=== PATIENT | male | born 1980 | race American Indian/Alaskan Native ===

== ENCOUNTER 2017-08-07 12:18 | Emergency (ER) | payer OTHER ==
[2017-08-07 12:25] VITALS: BP 183/108
--- NOTE | 2017-08-07 12:54 | Emergency Department Report ---
ED Lower Extremity HPI - General Chief Complaint: Extremity Injury, Lower Stated Complaint: LEFT KNEE SWOLLEN Time Seen by Provider: 08/07/17 12:54 Source: patient, family Mode of arrival: Ambulatory Limitations: No Limitations - History of Present Illness MD Complaint: other (left knee pain and swelling without any trauma with history of arthritis. Similar incident in the past) Onset/Timin -: days(s) Injury: Knee: Left (pain and swelling) Type of Injury: unknown Place: home Severity: severe Severity scale (0 -10): 8 Improves With: immobilization Worsens With: weight bearing, movement Context: other (osteoarthritis with similar incident in the past) Other Symptoms: other (no other symptoms) Associated Symptoms: swelling, ambulatory. denies: snap/pop sensation, numbness , tingling Treatments Prior to Arrival: bandage - Related Data Previous Rx's Medication Instructions Recorded Last Taken Type Acetaminophen/Codeine [Tylenol 1 tab PO Q6H PRN #12 tab 08/07/17 Unknown Rx /Codeine # 3 tab] Ibuprofen [Motrin] 800 mg PO Q8HR PRN #25 tablet 08/07/17 Unknown Rx Allergies Allergy/AdvReac Type Severity Reaction Status Date / Time No Known Allergies Allergy Unverified 08/07/17 12:25 ED Review of Systems ROS: Stated complaint: LEFT KNEE SWOLLEN Other details as noted in HPI Constitutional: denies: chills, fever Eyes: denies: eye pain, eye discharge, vision change Respiratory: denies: cough, orthopnea, shortness of breath, SOB with exertion, SOB at rest, wheezing Cardiovascular: denies: chest pain, palpitations Gastrointestinal: denies: nausea, vomiting Musculoskeletal: joint swelling, arthralgia. denies: back pain, myalgia Skin: denies: rash, lesions Neurological: denies: headache, weakness, numbness, paresthesias, confusion, abnormal gait, vertigo ED Past Medical Hx - Past Medical History Previous Medical History?: Yes Hx Hypertension: Yes Additional medical history: chronic left knee pain,elevated cholesterol - Surgical History Past Surgical History?: No - Family History Family history: hypertension - Social History Smoking Status: Current Every Day Smoker Substance Use Type: Alcohol - Medications Home Medications: Home Medications Medication Instructions Recorded Confirmed Last Taken Type Acetaminophen/Codeine [Tylenol 1 tab PO Q6H PRN #12 tab 08/07/17 Unknown Rx /Codeine # 3 tab] Ibuprofen [Motrin] 800 mg PO Q8HR PRN #25 tablet 08/07/17 Unknown Rx ED Physical Exam - General Limitations: No Limitations General appearance: alert, in no apparent distress - Head Head exam: Present: atraumatic, normocephalic, normal inspection - Eye Eye exam: Present: normal appearance, PERRL, EOMI Pupils: Present: normal accommodation - ENT ENT exam: Present: normal exam, normal orophraynx, mucous membranes moist - Neck Neck exam: Present: normal inspection, full ROM. Absent: tenderness, lymphadenopathy - Respiratory Respiratory exam: Present: normal lung sounds bilaterally. Absent: respiratory distress, chest wall tenderness - Cardiovascular Cardiovascular Exam: Present: regular rate, normal rhythm, normal heart sounds. Absent: systolic murmur, diastolic murmur - GI/Abdominal GI/Abdominal exam: Present: soft, normal bowel sounds. Absent: distended, tenderness, guarding, rebound, rigid - Extremities Exam Extremities exam: Present: normal inspection, full ROM (full range of motion to both knees but pain with flexion and extension of left knee.), tenderness ( tender to palpate to the left anterior knee), normal capillary refill, joint swelling (left anterior knee), other (+2 pulses. No CCE to all extremities except patient with mild swelling to left knee. Tenderness probably to left knee. No neurovascular compromise, +5 strength in all extremities). Absent: pedal edema, calf tenderness - Expanded Lower Extremity Exam Left Hip exam: Present: normal inspection, full ROM, pelvic stability. Absent: tenderness, swelling, abrasion, laceration, ecchymosis, deformity, crepidus, dislocation, erythema, external rotation, internal rotation, shortening Upper Leg exam: Present: normal inspection, full ROM. Absent: tenderness, swelling, laceration, ecchymosis, deformity, crepidus, dislocation, erythema Knee exam: Present: normal inspection, full ROM (full range of motion to left knee but pain with flexion and extension), swelling (tenderness to palpate to left anterior knee), full knee extension. Absent: abrasion, laceration, ecchymosis, deformity, crepidus, dislocation, erythema, effusion, pain w/ pronation/supination, posterior draw sign, pain/laxity with valgus, pain/laxity with varus Lower Leg exam: Present: normal inspection, full ROM. Absent: tenderness, swelling, abrasion, laceration, ecchymosis, deformity, crepidus, dislocation, erythema, palpable cord, Marlen's sign Ankle exam: Present: normal inspection, full ROM. Absent: tenderness, swelling , abrasion, laceration, ecchymosis, deformity, crepidus, dislocation, erythema Foot/Toe exam: Present: normal inspection, full ROM. Absent: tenderness, swelling, abrasion, laceration, ecchymosis, deformity, crepidus, dislocation, erythema, amputation, puncture wound, foreign body, calcaneal tenderness, tenderness at base of 5th metatarsal, nail avulsion, subungual hematoma Neuro vascular tendon exam: Present: no vascular compromise. Absent: pulse deficit, abnormal cap refill, motor deficit, sensory deficit, tendon deficit, extremity cold to touch, pallor, abnormal 2-point discrimination, decreased fine /light touch, foot drop, peroneal nerve deficit, significant pain with passive ROM of distal joint Gait: Positive: observed and limited by pain - Back Exam Back exam: Present: normal inspection, full ROM, other (ambulates it done any difficulties). Absent: tenderness, CVA tenderness (R), CVA tenderness (L), muscle spasm, paraspinal tenderness, vertebral tenderness, rash noted - Neurological Exam Neurological exam: Present: alert, oriented X3, normal gait, reflexes normal. Absent: motor sensory deficit - Psychiatric Psychiatric exam: Present: normal affect, normal mood - Skin Skin exam: Present: warm, dry, intact, normal color. Absent: rash ED Course Vital Signs 08/07/17 08/07/17 12:22 14:27 Temperature 98.6 F Pulse Rate 116 H 98 H Respiratory 18 Rate Blood Pressure 183/108 O2 Sat by Pulse 98 Oximetry - Reevaluation(s) Reevaluation #1: 08/07/17 14:28 Patient given Motrin 800 mg by mouth and [place] 5/325 2 tablets by mouth in emergency room and he forcibly for pain. Patient has his own knee brace that he brought to the emergency room which he placed back on to his left knee after assessment. ED Lower Extremity MDM - Radiology Data Radiology results: report reviewed 3 views of left knee done and dictated by radiologist report reviewed by myself. Please see report results below. Patient: HUYEN MARTINEZ MR#: [id number] : 1980 Acct:[id number] Age/Sex: 36 / M ADM Date: 08/07/17 Loc: ED Attending Dr: Ordering Physician: ANNA MORENO Date of Service: 08/07/17 Procedure(s): XR knee 3V LT Accession Number(s): [id number] cc: ANNA MORENO Fluoro Time In Minutes: LEFT KNEE RADIOGRAPHS INDICATION: Left knee pain and swelling without trauma. COMPARISON: None similar. FINDINGS: AP, lateral and oblique left knee radiographs demonstrate intact bony articulation. Patellar enthesophytosis anterosuperiorly. Approximately 1.7 cm anterior tibial tuberosity ossification at the patellar tendon insertion also noted on the lateral view. No evidence of suprapatellar effusion, though slight diffuse soft tissue swelling at the knee anteriorly not entirely excluded. CONCLUSION: No acute left knee bony abnormality with few other findings, as above. Please correlate. Thank you for the opportunity to participate in this patient's care. Transcribed By: RS Dictated By: MABEL ARAGON MD Electronically Authenticated By: MABEL ARAGON MD Signed Date/Time: 08/07/171335 DD/ 32 TD/TT: 08/07/171335 - Medical Decision Making ED course: This is a 36-year-old male with chronic knee pain and occasional swelling that reports that he has arthritis and is been having knee pain and swelling over the last couple days it has been increasing. He has his own knee brace. Patient is here to be evaluated because he says the pain is worse than usual and he did not take any medication prior to coming to the emergency room. Patient does have access to medical care but he has not gone to orthopedic doctor in the past I saw and examined patient and she was found to have left knee pain and swelling without any effusion .he has full range of motion to left knee but pain with extension and flexion. X-ray 3 view of left knee dictated by radiologist and reviewed by myself and patient found to have no acute findings except that he has some chronic bony abnormality, degeneration and he does have some soft tissue swelling without any effusion. Diagnosis explained to patient and he was understanding. Pain is controlled with medications and he also notes that he has call orthopedic doctor tomorrow to schedule an appointment for chronic knee pain evaluation 1: Left knee pain-x-ray of left knee reveals no effusion and no acute findings but chronic changes and soft tissue swelling. Patient given Motrin 800 mg by mouth and [place] 5/325 2 tablets by mouth in emergency room which relieved this pain. 2: Left knee swelling-patient has his own knee brace so that was placed back on his left knee Education given medication, diagnosis, treatment plan, need to follow up with orthopedic doctor for chronic knee pain with occasional swelling. He voice understanding. Patient discharged home with family in stable condition with prescription for Motrin and Tylenol No. 3. His vital signs are stable and afebrile and he is nontoxic. Discussed with him to follow up with orthopedic doctor in 2 days. I also explained to him if his situation worsens to return to the emergency room and that he needs to wear his knee brace as much as possible for immobilization and he voice understanding. - Differential Diagnosis knee fracture, knee effusion, septic knee, osteoarthritis, Critical care attestation.: If time is entered above; I have spent that time in minutes in the direct care of this critically ill patient, excluding procedure time. ED Disposition Clinical Impression: Swollen L knee Knee pain, left Qualifiers: Chronicity: unspecified Qualified Code(s): M25.562 - Pain in left knee Disposition: DC-01 TO HOME OR SELFCARE Is pt being admited?: No Does the pt Need Aspirin: No Condition: Stable Instructions: Arthralgia (ED), Knee Pain (ED), Knee Exercises (GEN) Additional Instructions: Follow-up with orthopedic doctor as recommended Wear knee brace as instructed Take Motrin for mild to moderate pain and make sure he take this medication with food as it can cause irritation to stomach lining. Take Tylenol No. 3 for severe pain but please do not drive or operate heavy machinery as his medication causes drowsiness If your pain increases in swelling increases return to the emergency room Prescriptions: Acetaminophen/Codeine [Tylenol /Codeine # 3 tab] 1 tab PO Q6H PRN #12 tab PRN Reason: severe pain to left knee Ibuprofen [Motrin] 800 mg PO Q8HR PRN #25 tablet PRN Reason: mild to moderate pain Referrals: RONAK PFEIFFER MD [Staff Physician] - 2-3 Days [facility] [Outside] - 2-3 Days PRIMARY CARE, [Primary Care Provider] - 2-3 Days Forms: Work/School Release Form(ED)
[2017-08-07] MEDS ORDERED: MOTRIN PO ONE (13:12)
[2017-08-07] MEDS ORDERED: PERCOCET 5/325 PO ONE (13:12)
--- NOTE | 2017-08-07 13:44 | XRay Report ---
LEFT KNEE RADIOGRAPHS INDICATION: Left knee pain and swelling without trauma. COMPARISON: None similar. FINDINGS: AP, lateral and oblique left knee radiographs demonstrate intact bony articulation. Patellar enthesophytosis anterosuperiorly. Approximately 1.7 cm anterior tibial tuberosity ossification at the patellar tendon insertion also noted on the lateral view. No evidence of suprapatellar effusion, though slight diffuse soft tissue swelling at the knee anteriorly not entirely excluded. CONCLUSION: No acute left knee bony abnormality with few other findings, as above. Please correlate. Thank you for the opportunity to participate in this patient's care.
== END 2017-08-07 14:54 | disposition home or self-care (01) ==
LOC: ED 12:18
DX: M25.562 Pain in left knee (principal); G89.29 Other chronic pain; R22.42 Localized swelling, mass and lump, left lower limb; F17.200 Nicotine dependence, unspecified, uncomplicated; F45.42 Pain disorder with related psychological factors

== ENCOUNTER 2018-03-12 12:46 | Emergency (ER) | payer OTHER ==
[2018-03-12] MEDS ORDERED: IBUPROFEN PO ONE (13:37)
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
[2018-03-12] MEDS ORDERED: CATAPRES PO ONE (13:48)
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
[2018-03-12 15:01] VITALS: BP 132/96
== END 2018-03-12 15:25 | disposition home or self-care (01) ==
LOC: ED 12:46
DX: S00.03XA Contusion of scalp, initial encounter (principal); I10 Essential (primary) hypertension; M25.562 Pain in left knee; G89.29 Other chronic pain; E78.00 Pure hypercholesterolemia, unspecified; F17.200 Nicotine dependence, unspecified, uncomplicated; V89.2XXA Person injured in unspecified motor-vehicle accident, traffic, initial encounter; Y93.89 Activity, other specified; Y92.488 Other paved roadways as the place of occurrence of the external cause; Y99.8 Other external cause status
CPT/HCPCS: 70450; 99283

== ENCOUNTER 2018-04-11 13:39 | Emergency (ER) | payer SELFPAY ==
[2018-04-11 13:53] VITALS: BP 197/124
--- NOTE | 2018-04-11 14:16 | Emergency Department Report ---
Blank Doc - Documentation Documentation: This is a 37 y.o. male that presents with N/V/D since yesterday. He reports v omiting and diarrhea every 3 hours. States he is unable to keep anything down today. Ordered: Labs Fast track for further evaluation.
[2018-04-11 14:53] LABS: Basophils # (Auto) 0.1 K/mm3 (0.0-0.1); Basophils % (Auto) 1.2 % (0.0-1.8); Eosinophils # (Auto) 0.1 K/mm3 (0.0-0.4); Hemoglobin 15.1 gm/dl (11.8-15.2); Lymphocytes # (Auto) 2.4 K/mm3 (1.2-5.4); Mean Corpuscular HGB Conc 34 % (32-34); Mean Corpuscular Volume 94 fl (84-94); Monocytes # (Auto) 0.7 K/mm3 (0.0-0.8); Monocytes % (Auto) 8.6 % (0.0-7.3); Platelet Count 331 K/mm3 (140-440); Red Blood Count 4.68 M/mm3 (3.65-5.03); Red Cell Distribution Width 14.7 % (13.2-15.2)
[2018-04-11 15:07] LABS: Alanine Aminotransferase 25 units/L (7-56); Albumin 4.9 g/dL (3.9-5); BUN/Creatinine Ratio 15; Blood Urea Nitrogen 12 mg/dL (9-20); Calcium 9.9 mg/dL (8.4-10.2); Hemolysis Index 13
--- NOTE | 2018-04-11 18:48 | Emergency Department Report ---
ED N/V/D HPI - General Chief complaint: Nausea/Vomiting/Diarrhea Stated complaint: N/V Time Seen by Provider: 04/11/18 14:12 Source: patient Mode of arrival: Ambulatory Limitations: No Limitations - History of Present Illness Initial comments: 37-year-old male presents to emergency department complaining of nausea, vomiting, diarrhea after eating out yesterday. Symptoms have been slowly improving since the onset about 12 hours ago, has occasional aches but denies any hemoptysis, hematemesis, hematochezia. No fever, chills, sweats, no chest pain, palpitations, no coryza, no presyncope, no neck pain MD complaint: nausea, vomiting, diarrhea -: Gradual Description of Vomiting: other Description of Diarrhea: other Associated Abdominal Pain: No Radiation: none Severity: mild Consistency: constant, intermittent Worsens with: none Associated Symptoms: nausea/vomiting. denies: myalgias, chest pain, cough, fever/chills, headaches, loss of appetite, shortness of breath, syncope, weakness - Related Data Previous Rx's Medication Instructions Recorded Last Taken Type Acetaminophen/Codeine [Tylenol 1 tab PO Q6H PRN #12 tab 08/07/17 Unknown Rx /Codeine # 3 tab] Ibuprofen [Motrin] 800 mg PO Q8HR PRN #25 tablet 08/07/17 Unknown Rx Cyclobenzaprine [Flexeril] 10 mg PO QHS PRN #10 tablet 03/12/18 Unknown Rx Ibuprofen [Motrin] 600 mg PO Q8H PRN #20 tablet 03/12/18 Unknown Rx amLODIPine [Norvasc] 10 mg PO DAILY #30 tab 03/12/18 Unknown Rx Hyoscyamine Subl [Levsin Sl 0.125 0.125 mg SL Q6HR PRN #20 tab 04/11/18 Unknown Rx TAB] Ondansetron [Zofran ODT TAB] 8 mg PO Q8HR #20 tab.rapdis 04/11/18 Unknown Rx Allergies Allergy/AdvReac Type Severity Reaction Status Date / Time No Known Allergies Allergy Verified 04/11/18 13:44 ED Review of Systems ROS: Stated complaint: N/V Other details as noted in HPI Constitutional: denies: chills, fever Eyes: denies: eye pain, eye discharge, vision change ENT: denies: ear pain, throat pain Respiratory: denies: cough, shortness of breath, wheezing Cardiovascular: denies: chest pain, palpitations Endocrine: no symptoms reported Gastrointestinal: nausea, vomiting, diarrhea. denies: abdominal pain Genitourinary: denies: urgency, dysuria Musculoskeletal: denies: back pain, joint swelling, arthralgia Skin: denies: rash, lesions Neurological: denies: headache, weakness, paresthesias Psychiatric: denies: anxiety, depression Hematological/Lymphatic: denies: easy bleeding, easy bruising ED Past Medical Hx - Past Medical History Hx Hypertension: Yes Additional medical history: chronic left knee pain,elevated cholesterol - Surgical History Past Surgical History?: No - Social History Smoking Status: Current Every Day Smoker Substance Use Type: Alcohol - Medications Home Medications: Home Medications Medication Instructions Recorded Confirmed Last Taken Type Acetaminophen/Codeine [Tylenol 1 tab PO Q6H PRN #12 tab 08/07/17 Unknown Rx /Codeine # 3 tab] Ibuprofen [Motrin] 800 mg PO Q8HR PRN #25 tablet 08/07/17 Unknown Rx Cyclobenzaprine [Flexeril] 10 mg PO QHS PRN #10 tablet 03/12/18 Unknown Rx Ibuprofen [Motrin] 600 mg PO Q8H PRN #20 tablet 03/12/18 Unknown Rx amLODIPine [Norvasc] 10 mg PO DAILY #30 tab 03/12/18 Unknown Rx Hyoscyamine Subl [Levsin Sl 0.125 0.125 mg SL Q6HR PRN #20 tab 04/11/18 Unknown Rx TAB] Ondansetron [Zofran ODT TAB] 8 mg PO Q8HR #20 tab.rapdis 04/11/18 Unknown Rx ED Physical Exam - General Limitations: No Limitations General appearance: alert, in no apparent distress - Head Head exam: Present: atraumatic, normocephalic - Eye Eye exam: Present: normal appearance, PERRL, EOMI. Absent: scleral icterus, conjunctival injection, periorbital swelling - ENT ENT exam: Present: normal orophraynx, mucous membranes moist, TM's normal bilaterally - Neck Neck exam: Present: normal inspection, full ROM. Absent: tenderness, lymphad enopathy - Respiratory Respiratory exam: Present: normal lung sounds bilaterally. Absent: respiratory distress, wheezes, rales, rhonchi, chest wall tenderness, accessory muscle use, decreased breath sounds - Cardiovascular Cardiovascular Exam: Present: regular rate, normal rhythm. Absent: systolic murmur, diastolic murmur, rubs, gallop - GI/Abdominal GI/Abdominal exam: Present: soft, normal bowel sounds. Absent: tenderness, guarding, rebound, organomegaly, mass, pulsatile mass - Rectal Rectal exam: Present: deferred - Extremities Exam Extremities exam: Present: normal inspection. Absent: full ROM - Back Exam Back exam: Present: normal inspection - Neurological Exam Neurological exam: Present: alert, oriented X3 - Psychiatric Psychiatric exam: Present: normal affect, normal mood - Skin Skin exam: Present: warm, dry, intact, normal color. Absent: rash ED Course Vital Signs 04/11/18 13:51 Temperature 98.3 F Pulse Rate 125 H Respiratory 18 Rate Blood Pressure 197/124 [Right] O2 Sat by Pulse 98 Oximetry ED Medical Decision Making - Lab Data Result diagrams: 04/11/18 14:24 04/11/18 14:24 Critical care attestation.: If time is entered above; I have spent that time in minutes in the direct care of this critically ill patient, excluding procedure time. ED Disposition Clinical Impression: Gastroenteritis Disposition: DC-01 TO HOME OR SELFCARE Is pt being admited?: No Does the pt Need Aspirin: No Condition: Stable Instructions: Acute Nausea and Vomiting (ED), Gastroenteritis (ED) Prescriptions: Hyoscyamine Subl [Levsin Sl 0.125 TAB] 0.125 mg SL Q6HR PRN #20 tab PRN Reason: abdomninal pain and cramp Ondansetron [Zofran ODT TAB] 8 mg PO Q8HR #20 tab.rapdis Referrals: MOHAMUD PRO MD [Primary Care Provider] - 3-5 Days [facility] [Provider Group] - 3-5 Days
== END 2018-04-11 19:00 | disposition home or self-care (01) ==
LOC: ED 13:39
DX: K52.9 Noninfective gastroenteritis and colitis, unspecified (principal); I10 Essential (primary) hypertension; M25.562 Pain in left knee; G89.29 Other chronic pain; E78.00 Pure hypercholesterolemia, unspecified; F17.200 Nicotine dependence, unspecified, uncomplicated
CPT/HCPCS: 36415; 80053; 85025; 99283

== ENCOUNTER 2018-05-15 12:49 | Emergency (ER) | payer OTHER ==
[2018-05-15 13:24] VITALS: BP 161/103
--- NOTE | 2018-05-15 13:27 | Emergency Department Report ---
Blank Doc - Documentation Documentation: this is a 37-year-old male that presents with left hand pain and swelling., De nies any hx of trauma. This initial assessment/diagnostic orders/clinical plan/treatment(s) is/are subject to change based on patient's health status, clinical progression and re- assessment by fellow clinical providers in the ED. Further treatment and workup at subsequent clinical providers discretion. Patient/guardians urged not to elope from the ED as their condition may be serious if not clinically assessed and managed. Initial orders include: 1- Patient sent to [facility] for further evaluation and treatment 2- xrays
--- NOTE | 2018-05-15 13:51 | XRay Report ---
LEFT HAND, 3 views: History: Left hand pain. The bony architecture is intact. Bony alignment is normal. The joint spaces appear preserved. There is mild soft tissue swelling on the dorsum of the hand IMPRESSION: Mild soft tissue swelling. No acute osseous findings or joint pathology is detected.
--- NOTE | 2018-05-15 14:00 | Emergency Department Report ---
Upper Extremity - HPI Chief Complaint: Extremity Problem,Nontraumatic Stated Complaint: LFT HAND SWOLLEN/PAIN Time Seen by Provider: 05/15/18 13:25 Upper Extremity: Left Hand Occurred When: 2 Days Mechanism: Unsure Severity: moderate Symptoms: Yes Pain with Movement, Yes Swelling, No Deformity, No Limited Range of Movement, No Numbness, No Weakness, No Bruising/Ecchymosis, No Laceration or Abrasion Other History: Patient is a pleasant 37-year-old -Indian male who comes to the ER complaining of left hand pain. He knows of no trauma. 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 He also has a scalp which is consistent with an insect bite on the dorsal surface of the hand. Patient has no systemic signs or symptoms. He is afebrile. Past medical history denies. Medications denies. Patient states he has been taking daci-esg-ctibths Motrin and Tylenol and that has not helped. ED Review of Systems ROS: Stated complaint: LFT HAND SWOLLEN/PAIN Other details as noted in HPI Comment: All other systems reviewed and negative Constitutional: no symptoms reported Eyes: denies: eye pain ENT: denies: ear pain Respiratory: denies: cough Cardiovascular: denies: dyspnea on exertion Gastrointestinal: denies: nausea Genitourinary: denies: urgency Musculoskeletal: as per HPI Skin: denies: rash Neurological: denies: headache Psychiatric: denies: depression Hematological/Lymphatic: denies: easy bleeding ED Past Medical Hx - Past Medical History Previous Medical History?: Yes Hx Hypertension: Yes Additional medical history: chronic left knee pain,elevated cholesterol - Surgical History Past Surgical History?: No - Family History Family history: no significant - Social History Smoking Status: Unknown if ever smoked Substance Use Type: None - Medications Home Medications: Home Medications Medication Instructions Recorded Confirmed Last Taken Type Acetaminophen/Codeine [Tylenol 1 tab PO Q6H PRN #12 tab 08/07/17 Unknown Rx /Codeine # 3 tab] Ibuprofen [Motrin] 800 mg PO Q8HR PRN #25 tablet 08/07/17 Unknown Rx Cyclobenzaprine [Flexeril] 10 mg PO QHS PRN #10 tablet 03/12/18 Unknown Rx Ibuprofen [Motrin] 600 mg PO Q8H PRN #20 tablet 03/12/18 Unknown Rx amLODIPine [Norvasc] 10 mg PO DAILY #30 tab 03/12/18 Unknown Rx Hyoscyamine Subl [Levsin Sl 0.125 0.125 mg SL Q6HR PRN #20 tab 04/11/18 Unknown Rx TAB] Ondansetron [Zofran ODT TAB] 8 mg PO Q8HR #20 tab.rapdis 04/11/18 Unknown Rx Naproxen [Naprosyn] 500 mg PO BID PRN #30 tablet 05/15/18 Unknown Rx cephALEXin [Keflex] 500 mg PO Q12HR #20 cap 05/15/18 Unknown Rx Upper Extremity Exam - Exam General: Vital signs noted. No distress. Alert and acting appropriately. Head and Torso: No HEENT Abnormality, No Neck Tenderness, No Chest/Lungs Abnormality, No Abdominal Tenderness, No Back Tenderness Shoulder Exam: No Shoulder Tenderness, No Clavicle Tenderness, No Normal Range of Motion in Shoulder, No Shoulder Deformity, No AC Joint Tenderness Arm Exam: No Arm/Humerus Tenderness Elbow: No Elbow Tenderness Forearm: No Forearm Tenderness Wrist: Yes Normal ROM in Wrist, No Wrist Tenderness, No Wrist Deformity, No Snuffbox Tenderness, No Pain with Axial Thumb Compression Hand: Yes Hand Tenderness, Yes Normal ROM in Digit(s), No Hand Deformity, No Digit Tenderness, No Digit(s) Deformity, No Tendon Dysfunction (ULNAR, RADIAL AND MEDIAL NERVE INTACT; RAPID CAP REFILL; NORMAL RADIAL AND ULNAR PULSES) CMS Exam: Yes Broken Skin (SCAB CONSISTENT WITH INSECT BITE ON DORSAL SURFACE OF THE HAND), Yes Normal Distal Pulses, Yes Normal Capillary Refill, Yes Normal Distal Sensation Hand L/R Back: 1 - AREA OF REDNESS AND SWELLING. ED Course Vital Signs 05/15/18 13:22 Temperature 98.5 F Pulse Rate 112 H Respiratory 20 Rate Blood Pressure 161/103 O2 Sat by Pulse 99 Oximetry ED Medical Decision Making - Medical Decision Making DR PEREZ EXAMINED HAND DECADRON AND ANCEF IM [facility] DC HOME WITH ANTIBIOTICS AND NAPROSYN REFERRAL TO DR PFEIFFER FOR FOLLOW UP PT EDUCATED ON MONITORING HIS BP NO HX HTN LIKELY DUE TO PAIN REFERRAL TO PCP GIVEN Vital Signs 05/15/18 13:22 Temperature 98.5 F Pulse Rate 112 H Respiratory 20 Rate Blood Pressure 161/103 O2 Sat by Pulse 99 Oximetry Critical care attestation.: If time is entered above; I have spent that time in minutes in the direct care of this critically ill patient, excluding procedure time. ED Disposition Clinical Impression: Cellulitis, Elevated blood pressure reading Disposition: TO HOME OR SELFCARE Is pt being admited?: No Does the pt Need Aspirin: No Condition: Stable Instructions: Cellulitis (ED) Additional Instructions: MEDS ORDERED TODAY [facility] FOR 3-5 DAYS FOR COMFORT KEEP ELEVATED COOL COMPRESSES MAY HELP FOLLOW UP WITH ORTHO MD IF PERSISTS FOLLOW UP WITH PCP TO BE SURE YOUR BLOOD PRESSURE GOES DOWN REFERRAL BELOW Prescriptions: cephALEXin [Keflex] 500 mg PO Q12HR #20 cap Naproxen [Naprosyn] 500 mg PO BID PRN #30 tablet PRN Reason: Pain , Severe (7-10) [facility] [Primary Care Provider] - 3-5 Days RONAK PFEIFFER MD [Staff Physician] - 3-5 Days Forms: Work/School Release Form(ED) Time of Disposition: 14:33
[2018-05-15] MEDS ORDERED: DECADRON IM ONE (14:22)
[2018-05-15] MEDS ORDERED: ANCEF IM ONE (14:27)
[2018-05-15] MEDS ORDERED: WATER FOR INJ (PF) ONE (14:49)
== END 2018-05-15 15:43 | disposition home or self-care (01) ==
LOC: ED 12:49
DX: L03.114 Cellulitis of left upper limb (principal); I10 Essential (primary) hypertension; E78.00 Pure hypercholesterolemia, unspecified
CPT/HCPCS: 73130; 96372; 99283; J0690; J1100

== ENCOUNTER 2018-07-11 10:12 | Emergency (ER) | payer OTHER ==
[2018-07-11 10:51] LABS: Basophils # (Auto) 0.1 K/mm3 (0.0-0.1); Basophils % (Auto) 0.7 % (0.0-1.8); Eosinophils # (Auto) 0.1 K/mm3 (0.0-0.4); Eosinophils % (Auto) 1.3 % (0.0-4.3); Hematocrit 44.3 % (35.5-45.6); Hemoglobin 15.7 gm/dl (11.8-15.2); Lymphocytes # (Auto) 2.2 K/mm3 (1.2-5.4); Lymphocytes % (Auto) 27.7 % (13.4-35.0); Mean Corpuscular HGB Conc 36 % (32-34); Mean Corpuscular Volume 94 fl (84-94); Monocytes # (Auto) 0.6 K/mm3 (0.0-0.8); Monocytes % (Auto) 7.7 % (0.0-7.3); Platelet Count 239 K/mm3 (140-440); Red Blood Count 4.73 M/mm3 (3.65-5.03)
[2018-07-11 10:58] LABS: Bilirubin,Urine NEG (Negative); Blood,Urine SM (Negative); Color,Urine Yellow (Yellow); Mucus,Urine FEW /HPF; Urobilinogen,Urine < 2.0 mg/dL (<2.0)
[2018-07-11] MEDS ORDERED: ZOFRAN IV ONE (11:14)
[2018-07-11] MEDS ORDERED: NACL 0.9% 1000 ML 1,000 ML IV ONE (11:14)
--- NOTE | 2018-07-11 11:25 | Emergency Department Report ---
HPI - General Chief Complaint: Nausea/Vomiting/Diarrhea Time Seen by Provider: 07/11/18 10:35 - HPI HPI: 37 year-old male presents to the emergency department with complaint of nausea, vomiting and diarrhea that has been going on since . Today the patient says that there has been no further episodes of vomiting but he still remains slightly nauseated. However he says that he has a constant flow of diarrhea. He denies any abdominal pain, back pain, fever. He denies any past medical history. He has not taken anything for his symptoms prior to arrival. He is a tobacco smoker. No primary care physician. ED Past Medical Hx - Past Medical History Hx Hypertension: Yes Additional medical history: chronic left knee pain,elevated cholesterol - Surgical History Past Surgical History?: No - Social History Smoking Status: Never Smoker Substance Use Type: Alcohol - Medications Home Medications: Home Medications Medication Instructions Recorded Confirmed Last Taken Type Acetaminophen/Codeine [Tylenol 1 tab PO Q6H PRN #12 tab 08/07/17 Unknown Rx /Codeine # 3 tab] Ibuprofen [Motrin] 800 mg PO Q8HR PRN #25 tablet 08/07/17 Unknown Rx Cyclobenzaprine [Flexeril] 10 mg PO QHS PRN #10 tablet 03/12/18 Unknown Rx Ibuprofen [Motrin] 600 mg PO Q8H PRN #20 tablet 03/12/18 Unknown Rx Hyoscyamine Subl [Levsin Sl 0.125 0.125 mg SL Q6HR PRN #20 tab 04/11/18 Unknown Rx TAB] Ondansetron [Zofran ODT TAB] 8 mg PO Q8HR #20 tab.rapdis 04/11/18 Unknown Rx Naproxen [Naprosyn] 500 mg PO BID PRN #30 tablet 05/15/18 Unknown Rx cephALEXin [Keflex] 500 mg PO Q12HR #20 cap 05/15/18 Unknown Rx Ondansetron [Zofran Odt] 4 mg PO Q8HR PRN #12 tab.rapdis 07/11/18 Unknown Rx amLODIPine [Norvasc] 10 mg PO DAILY #30 tab 07/11/18 Unknown Rx ED Review of Systems ROS: Stated complaint: V/D Other details as noted in HPI Constitutional: denies: chills, fever Eyes: denies: eye pain, vision change ENT: denies: ear pain, throat pain Respiratory: denies: cough, shortness of breath Cardiovascular: denies: chest pain, palpitations Gastrointestinal: nausea, vomiting, diarrhea Genitourinary: denies: dysuria, discharge Musculoskeletal: denies: back pain, arthralgia Skin: denies: rash, lesions Neurological: denies: headache, weakness Physical Exam - Physical Exam Vital Signs: Vital Signs 07/11/18 07/11/18 10:24 10:25 Temperature 98.2 F Pulse Rate 114 H Respiratory 20 Rate Blood Pressure 172/117 Blood Pressure 179/120 [Left] Blood Pressure 172/117 [Right] O2 Sat by Pulse 98 Oximetry Physical Exam: GENERAL: The patient is well-developed well-nourished. HENT: Normocephalic. Atraumatic. Patient has moist mucous membranes. EYES: Extraocular motions are intact. Pupils equal reactive to light bilaterally. NECK: Supple. Trachea is midline. CHEST/LUNGS: Clear to auscultation. There is no respiratory distress noted. HEART/CARDIOVASCULAR: Regular. There is no tachycardia. There is no murmur. ABDOMEN: Abdomen is soft, nontender. Patient has normal bowel sounds. There is no abdominal distention. SKIN: Skin is warm and dry. NEURO: The patient is awake, alert, and oriented. The patient is cooperative. The patient has no focal neurologic deficits. The patient has normal speech. MUSCULOSKELETAL: There is no tenderness or deformity. There is no evidence of acute injury. ED Course Vital Signs 07/11/18 07/11/18 10:24 10:25 Temperature 98.2 F Pulse Rate 114 H Respiratory 20 Rate Blood Pressure 172/117 Blood Pressure 179/120 [Left] Blood Pressure 172/117 [Right] O2 Sat by Pulse 98 Oximetry ED Medical Decision Making - Lab Data Result diagrams: 07/11/18 10:46 07/11/18 11:50 - Medical Decision Making Patient presents to the emergency department with complaint of a 24-hour history of nausea, vomiting and diarrhea. There is been no further vomiting or diarrheal episodes while in the emergency department. His labs have been unremarkable except for some mild hypokalemia with potassium of 5.3 and some mild signs of dehydration with ketones in the urine. He was given some IV fluid resuscitation and a dose of Zofran. However the patient also has been dealing with some elevated blood pressure as he has been out of his amlodipine. The patient was given a few doses of blood pressure medication with some improvement. He has no complaints of any abdominal pain, chest pain, shortness of breath, headache. He was given a dose of Kayexalate for his mild hyperkalemia. The patient will be given amlodipine refill. We discussed tobacco cessation and dietary and lifestyle changes to be made. He will return to the ER with any worsening of his symptoms or any acute distress. - Differential Diagnosis gastroenteritis, food poisoning, colitis Critical Care Time: No Critical care attestation.: If time is entered above; I have spent that time in minutes in the direct care of this critically ill patient, excluding procedure time. ED Disposition Clinical Impression: Hyperkalemia Nausea & vomiting Qualifiers: Vomiting type: unspecified Vomiting Intractability: non-intractable Qualified Code(s): R11.2 - Nausea with vomiting, unspecified Diarrhea Qualifiers: Diarrhea type: unspecified type Qualified Code(s): R19.7 - Diarrhea, unspecified Hypertension Qualifiers: Hypertension type: essential hypertension Qualified Code(s): I10 - Essential (primary) hypertension Disposition: TO HOME OR SELFCARE Is pt being admited?: No Condition: Stable Instructions: Hyperkalemia (ED), Acute Nausea and Vomiting (ED), Acute Diarrhea (ED), Hypertension (ED) Additional Instructions: Please follow up with a primary care physician in the next few days. Return to the emergency Department with any worsening of your symptoms or any acute distress. Increase your oral rehydration. Try and stay away from any foods that are high in salt and caffeinated products. Try and quit smoking. Keep a blood pressure log. I am restarting you on your amlodipine. Prescriptions: amLODIPine [Norvasc] 10 mg PO DAILY #30 tab Ondansetron [Zofran Odt] 4 mg PO Q8HR PRN #12 tab.rapdis PRN Reason: Nausea Referrals: MOHAMUD PRO MD [Primary Care Provider] - 3-5 Days Forms: Work/School Release Form(ED) Time of Disposition: 15:11
[2018-07-11 11:31] LABS: BUN/Creatinine Ratio TNR; Blood Urea Nitrogen TNR mg/dL (9-20)
[2018-07-11 11:32] LABS: Alanine Aminotransferase TNR units/L (7-56); Albumin TNR g/dL (3.9-5); Calcium TNR mg/dL (8.4-10.2); Hemolysis Index TNR
[2018-07-11 12:21] LABS: Albumin 3.9 g/dL (3.9-5); BUN/Creatinine Ratio 19; Blood Urea Nitrogen 13 mg/dL (9-20); Calcium 9.3 mg/dL (8.4-10.2); Hemolysis Index 207
[2018-07-11 12:37] LABS: Alanine Aminotransferase 18 units/L (7-56)
[2018-07-11] MEDS ORDERED: APRESOLINE IV ONE (13:00)
[2018-07-11] MEDS ORDERED: NORMODYNE IV ONE (14:07)
[2018-07-11 14:44] VITALS: BP 163/117
[2018-07-11] MEDS ORDERED: KIONEX PO ONE (15:11)
== END 2018-07-11 15:57 | disposition home or self-care (01) ==
LOC: ED 10:12
DX: E87.5 Hyperkalemia (principal); I10 Essential (primary) hypertension
CPT/HCPCS: 36415; 80053; 81001; 85025; 96361; 96374; 96375; 99283; J0360; J2405; J7030

== ENCOUNTER 2018-08-21 17:54 | Emergency (ER) | payer OTHER ==
--- NOTE | 2018-08-21 18:30 | Event Note ---
ED Screening Note ED Screening Note: pt presents with lightheadedness that began two days ago states he has a HERNANDEZ no N/V/D states he has been having nosebleeds no CP no SOB states has a hx of HTN and states he took amlodipine 10 mg today does not have a primary care doctor states he gets his blood pressure medication from the emergency room states he is taking his medication sporadically to make it last longer +tobacco no drug use +occ ETOH This initial assessment/diagnostic orders/clinical plan/treatment(s) is/are subject to change based on patients health status, clinical progression and re- assessment by fellow clinical providers in the ED. Further treatment and workup at subsequent clinical providers discretion. Patient/guardian urged not to elope from the ED as their condition may be serious if not clinically assessed and managed. Initial orders include: labs
[2018-08-21 19:32] LABS: Basophils # (Auto) 0.1 K/mm3 (0.0-0.1); Basophils % (Auto) 1.1 % (0.0-1.8); Eosinophils # (Auto) 0.2 K/mm3 (0.0-0.4); Eosinophils % (Auto) 2.4 % (0.0-4.3); Hematocrit 46.5 % (35.5-45.6); Hemoglobin 15.8 gm/dl (11.8-15.2); Lymphocytes # (Auto) 3.5 K/mm3 (1.2-5.4); Lymphocytes % (Auto) 36.5 % (13.4-35.0); Mean Corpuscular HGB Conc 34 % (32-34); Mean Corpuscular Volume 95 fl (84-94); Monocytes # (Auto) 0.8 K/mm3 (0.0-0.8); Monocytes % (Auto) 8.3 % (0.0-7.3); Red Blood Count 4.87 M/mm3 (3.65-5.03); Red Cell Distribution Width 14.3 % (13.2-15.2)
[2018-08-21 19:36] LABS: Platelet Count 129 K/mm3 (140-440)
[2018-08-21] MEDS ORDERED: TYLENOL PO ONE (19:39)
[2018-08-21] MEDS ORDERED: APRESOLINE IM ONE (19:39)
[2018-08-21 19:40] LABS: INR 1.04 (0.87-1.13)
[2018-08-21 19:50] LABS: BUN/Creatinine Ratio 16; Blood Urea Nitrogen 13 mg/dL (9-20); Calcium 10.3 mg/dL (8.4-10.2); Hemolysis Index 6
[2018-08-21 20:34] LABS: Albumin 4.7 g/dL (3.9-5); Bilirubin,Direct 0.2 mg/dL (0-0.2)
[2018-08-21 20:41] VITALS: BP 162/100
--- NOTE | 2018-08-21 22:09 | Emergency Department Report ---
ED General Adult HPI - General Chief complaint: Nosebleed Stated complaint: LIGHT HEADED/NOSE BLEED Time Seen by Provider: 08/21/18 18:28 Source: patient Mode of arrival: Ambulatory Limitations: No Limitations - History of Present Illness Initial comments: Patient is a 37-year-old -[place] male with a history of hypertension which is poorly controlled and takes amlodipine 10 mg daily presents to the ED with complaint of acute onset persistent intermittent lightheadedness for the last 3 days and left sided nosebleed 30 minutes prior to arrival in the ED. Patient denies chest pain, shortness of breath, headache, nausea, vomiting, syncope, seizures, diaphoresis, change in vision, traumatic injury, suffered, nasal and sinus congestion, abdominal pain and back pain. MD Complaint: Lightheadedness, Nosebleeding, poorly controlled HTN -: Sudden, days(s) (3) Location: head, face Radiation: non-radiation Severity scale (0 -10): 3 Quality: aching, dull Consistency: constant Improves with: none Worsens with: none Associated Symptoms: denies other symptoms. denies: confusion, chest pain, cou gh, diaphoresis, fever/chills, headaches, loss of appetite, malaise, nausea/vomiting, rash, seizure, shortness of breath, syncope, weakness, other Treatments Prior to Arrival: none - Related Data Previous Rx's Medication Instructions Recorded Last Taken Type Acetaminophen/Codeine [Tylenol 1 tab PO Q6H PRN #12 tab 08/07/17 Unknown Rx /Codeine # 3 tab] Ibuprofen [Motrin] 800 mg PO Q8HR PRN #25 tablet 08/07/17 Unknown Rx Cyclobenzaprine [Flexeril] 10 mg PO QHS PRN #10 tablet 03/12/18 Unknown Rx Ibuprofen [Motrin] 600 mg PO Q8H PRN #20 tablet 03/12/18 Unknown Rx Hyoscyamine Subl [Levsin Sl 0.125 0.125 mg SL Q6HR PRN #20 tab 04/11/18 Unknown Rx TAB] Ondansetron [Zofran ODT TAB] 8 mg PO Q8HR #20 tab.rapdis 04/11/18 Unknown Rx Naproxen [Naprosyn] 500 mg PO BID PRN #30 tablet 05/15/18 Unknown Rx cephALEXin [Keflex] 500 mg PO Q12HR #20 cap 05/15/18 Unknown Rx Ondansetron [Zofran Odt] 4 mg PO Q8HR PRN #12 tab.rapdis 07/11/18 Unknown Rx Lisinopril/Hydrochlorothiazide 1 tab PO QDAY #30 tab 08/21/18 Unknown Rx [Zestoretic 20-12.5 mg] amLODIPine [Norvasc] 10 mg PO DAILY #30 tab 08/21/18 Unknown Rx Allergies Allergy/AdvReac Type Severity Reaction Status Date / Time No Known Allergies Allergy Verified 07/11/18 10:13 ED Review of Systems ROS: Stated complaint: LIGHT HEADED/NOSE BLEED Other details as noted in HPI Constitutional: malaise. denies: chills, fever Eyes: denies: eye pain, eye discharge, vision change ENT: epistaxis (left-sided, resolved). denies: ear pain, throat pain Respiratory: denies: cough, shortness of breath, wheezing Cardiovascular: denies: chest pain, palpitations, dyspnea on exertion, orthopnea, edema, syncope, paroxysmal nocturnal dyspnea Endocrine: no symptoms reported Gastrointestinal: denies: abdominal pain, nausea, diarrhea Genitourinary: denies: urgency, dysuria Musculoskeletal: denies: back pain, joint swelling, arthralgia Skin: denies: rash, lesions Neurological: other (lightheadedness). denies: headache, weakness, paresthesias Psychiatric: denies: anxiety, depression Hematological/Lymphatic: denies: easy bleeding, easy bruising ED Past Medical Hx - Past Medical History Previous Medical History?: Yes Hx Hypertension: Yes Additional medical history: chronic left knee pain,elevated cholesterol - Surgical History Past Surgical History?: No - Social History Smoking Status: Current Every Day Smoker Substance Use Type: None - Medications Home Medications: Home Medications Medication Instructions Recorded Confirmed Last Taken Type Acetaminophen/Codeine [Tylenol 1 tab PO Q6H PRN #12 tab 08/07/17 Unknown Rx /Codeine # 3 tab] Ibuprofen [Motrin] 800 mg PO Q8HR PRN #25 tablet 08/07/17 Unknown Rx Cyclobenzaprine [Flexeril] 10 mg PO QHS PRN #10 tablet 03/12/18 Unknown Rx Ibuprofen [Motrin] 600 mg PO Q8H PRN #20 tablet 03/12/18 Unknown Rx Hyoscyamine Subl [Levsin Sl 0.125 0.125 mg SL Q6HR PRN #20 tab 04/11/18 Unknown Rx TAB] Ondansetron [Zofran ODT TAB] 8 mg PO Q8HR #20 tab.rapdis 04/11/18 Unknown Rx Naproxen [Naprosyn] 500 mg PO BID PRN #30 tablet 05/15/18 Unknown Rx cephALEXin [Keflex] 500 mg PO Q12HR #20 cap 05/15/18 Unknown Rx Ondansetron [Zofran Odt] 4 mg PO Q8HR PRN #12 tab.rapdis 07/11/18 Unknown Rx Lisinopril/Hydrochlorothiazide 1 tab PO QDAY #30 tab 08/21/18 Unknown Rx [Zestoretic 20-12.5 mg] amLODIPine [Norvasc] 10 mg PO DAILY #30 tab 08/21/18 Unknown Rx ED Physical Exam - General Limitations: No Limitations General appearance: alert, in no apparent distress - Head Head exam: Present: atraumatic, normocephalic, normal inspection - Eye Eye exam: Present: normal appearance, PERRL, EOMI Pupils: Present: normal accommodation - ENT ENT exam: Present: normal exam, normal orophraynx, mucous membranes moist, TM's normal bilaterally, normal external ear exam, other (Epistaxis resolved) - Neck Neck exam: Present: normal inspection, full ROM - Respiratory Respiratory exam: Present: normal lung sounds bilaterally. Absent: respiratory distress, wheezes, rales, rhonchi, stridor, chest wall tenderness, accessory muscle use, decreased breath sounds, prolonged expiratory - Cardiovascular Cardiovascular Exam: Present: regular rate, normal rhythm. Absent: systolic murmur, diastolic murmur, rubs, gallop - GI/Abdominal GI/Abdominal exam: Present: soft, normal bowel sounds. Absent: distended, tenderness, guarding, rebound, hyperactive bowel sounds, hypoactive bowel sounds, organomegaly - Rectal Rectal exam: Present: deferred - Extremities Exam Extremities exam: Present: normal inspection, full ROM, normal capillary refill - Back Exam Back exam: Present: normal inspection, full ROM. Absent: tenderness, CVA tenderness (R), CVA tenderness (L), muscle spasm, paraspinal tenderness - Neurological Exam Neurological exam: Present: alert, oriented X3, CN II-XII intact, normal gait, reflexes normal - Psychiatric Psychiatric exam: Present: normal affect, normal mood - Skin Skin exam: Present: warm, dry, intact, normal color. Absent: rash ED Course Vital Signs 08/21/18 08/21/18 18:28 20:40 Temperature 98.2 F Pulse Rate 103 H 86 Respiratory 18 17 Rate Blood Pressure 189/100 Blood Pressure 162/100 [Right] O2 Sat by Pulse 98 98 Oximetry - Reevaluation(s) Reevaluation #1: 08/21/18 22:10 Patient is alert and oriented 3 and is not in distress but hypertensive into the edge. Labs were drawn and EKG also ordered. Lab test results were reviewed and are unremarkable including initial troponin and troponin levels. EKG shows sinus rhythm with a ventricular rate of 95 bpm and no pathological Q waves, or ST or T-wave abnormalities. On reevaluation, the patient lightheadedness resolved with treatment in the ED and blood pressure also improved to 162/100. Patient was discharged home on additional blood pressure medication, lisinopril HCTZ 20-to 12.5 mg daily in addition to the amlodipine 10 mg daily the patient has been taking. Patient was referred to the [facility] for further evaluation in 7-10 days and advised contacting his own schedule an appointment. Patient otherwise return to the ED immediately if symptoms get worse. ED Medical Decision Making - Lab Data Result diagrams: 08/21/18 18:44 08/21/18 18:44 - EKG Data EKG shows normal: sinus rhythm - EKG Data Interpretation: normal EKG - Medical Decision Making Patient is alert and oriented 3 and is not in distress but hypertensive into the edge. Labs were drawn and EKG also ordered. Lab test results were reviewed and are unremarkable including initial troponin and troponin levels. EKG shows sinus rhythm with a ventricular rate of 95 bpm and no pathological Q waves, or ST or T-wave abnormalities. On reevaluation, the patient lightheadedness resolved with treatment in the ED and blood pressure also improved to 162/100. Patient was discharged home on additional blood pressure medication, lisinopril HCTZ 20-to 12.5 mg daily in addition to the amlodipine 10 mg daily the patient has been taking. Patient was referred to the [facility] for further evaluation in 7-10 days and advised contacting his own schedule an appointment. Patient otherwise return to the ED immediately if symptoms get worse. - Differential Diagnosis lightheadedness, uncontrolled HTN, epistaxis, Headache Critical care attestation.: If time is entered above; I have spent that time in minutes in the direct care of this critically ill patient, excluding procedure time. ED Disposition Clinical Impression: Intermittent lightheadedness, Uncontrolled stage 2 hypertension, Left-sided nosebleed Disposition: TO HOME OR SELFCARE Is pt being admited?: No Does the pt Need Aspirin: No Condition: Stable Instructions: Hypertension (ED), Lightheadedness (ED), Epistaxis (ED) Additional Instructions: Take medications with food, drink plenty of fluids and follow-up with [facility] in 7-10 days for reevaluation. Return to the ED immediately if symptoms get worse. Prescriptions: amLODIPine [Norvasc] 10 mg PO DAILY #30 tab Lisinopril/Hydrochlorothiazide [Zestoretic 20-12.5 mg] 1 tab PO QDAY #30 tab Referrals: [facility] [Outside] - 3-5 Days Time of Disposition: 22:07 Print Language: GREEK
== END 2018-08-21 22:55 | disposition home or self-care (01) ==
LOC: ED 17:54
DX: I10 Essential (primary) hypertension (principal); R42 Dizziness and giddiness; R04.0 Epistaxis; G89.29 Other chronic pain; M25.562 Pain in left knee; E78.00 Pure hypercholesterolemia, unspecified; F17.200 Nicotine dependence, unspecified, uncomplicated; Z79.899 Other long term (current) drug therapy
CPT/HCPCS: 36415; 80048; 80076; 84484; 85025; 85610; 85730; 93005; 93010; 99283

== ENCOUNTER 2019-04-14 14:49 | Emergency (ER) | payer SELFPAY ==
[2019-04-14 15:15] VITALS: BP 138/88
--- NOTE | 2019-04-14 16:15 | Event Note ---
ED Screening Note Date of service: 04/14/19 Time: 16:14 ED Screening Note: Pt complains of right wrist pain and swelling x 1 week denies injury or hx of gout This initial assessment/diagnostic orders/clinical plan/treatment(s) is/are subject to change based on patients health status, clinical progression and re- assessment by fellow clinical providers in the ED. Further treatment and workup at subsequent clinical providers discretion. Patient/guardian urged not to elope from the ED as their condition may be serious if not clinically assessed and managed. Initial orders include: XR
--- NOTE | 2019-04-14 16:56 | XRay Report ---
EXAMINATION: Right wrist radiograph, 3 views CLINICAL INFORMATION: Right wrist pain and swelling for one month. No history of trauma. COMPARISON: None. FINDINGS: There is no evidence of acute fracture or dislocation of the right wrist. No focal soft tis marie swelling is identified. Signer Name: Kaelyn Sargent MD Signed: 04/14/2019 4:52 PM Workstation Name: [id number]
== END 2019-04-14 19:01 | disposition left against medical advice (07) ==
LOC: ED 14:49
DX: M25.531 Pain in right wrist (principal); Z53.21 Procedure and treatment not carried out due to patient leaving prior to being seen by health care provider

== ENCOUNTER 2019-09-03 02:35 | Emergency (ER) | payer SELFPAY ==
[2019-09-03 03:34] VITALS: BP 147/94
--- NOTE | 2019-09-03 03:42 | Emergency Department Report ---
Chief Complaint: Extremity Injury, Upper Stated Complaint: PAIN IN RT HAND FINGERS Time Seen by Provider: 09/03/19 03:33 - HPI History of Present Illness: 38-year-old -French male presents to the emergency room for tingling and pain to the right third and fourth digit. Patient states he had swelling yesterday. Patient states that it started last Tuesday with a insect bite to his wrist. Patient reports that the pain is achy and sharp at times. Patient was seen here on 08/30/2019 and was prescribed prednisone Bactrim and a refill on his blood pressure medication. Patient reports he did not follow-up with the providers that was referred to him. Patient states is been taking Aleve for pain. - Exam Physical Exam: Alert and oriented x3 no acute distress sleeping comfortably in chair. Nontoxic in appearance Right hand full range of motion mild swelling redness appreciated of the third and fourth finger. MSE screening note: Focused history and physical exam performed. Due to findings the following was ordered: 38-year-old -French male presents to the emergency room for tingling and pain to the right third and fourth digit. Patient states he had swelling yesterday. Patient states that it started last Tuesday with a insect bite to his wrist. Patient reports that the pain is achy and sharp at times. Patient was seen here on 08/30/2019 and was prescribed prednisone Bactrim and a refill on his blood pressure medication. Patient reports he did not follow-up with the providers that was referred to him. Patient states is been taking Aleve for pain. Recommend patient to follow-up with orthopedic provider and a primary care provider. Recommend to continue with all medications that was prescribed to patient on 30 August 2019. ED Disposition for MSE Clinical Impression: Finger numbness Disposition: Z-07 MED SCREENING EXAM-LEFT Is pt being admited?: No Does the pt Need Aspirin: No Condition: Stable Additional Instructions: Continue with all medications that was prescribed to you on 30 August 2019. Follow-up with the providers at work you are referred to. Referrals: PRIMARY MD ARNULFO [Primary Care Provider] - 3-5 Days TILA LONOGRIA MD [Staff Physician] - 3-5 Days RONAK PFEIFFER MD [Staff Physician] - 3-5 Days Forms: Work/School Release Form(ED)
== END 2019-09-03 08:29 | disposition left against medical advice (07) ==
LOC: ED 02:35
DX: M79.644 Pain in right finger(s) (principal); Z53.21 Procedure and treatment not carried out due to patient leaving prior to being seen by health care provider

== ENCOUNTER 2020-05-05 11:19 | Emergency (ER) | payer SELFPAY ==
[2020-05-05 11:41] VITALS: BP 170/113
--- NOTE | 2020-05-05 12:37 | XRay Report ---
CHEST 2 VIEWS INDICATION / CLINICAL INFORMATION: dizziness. COMPARISON: None available. FINDINGS: SUPPORT DEVICES: None. HEART / MEDIASTINUM: No significant abnormality. LUNGS / PLEURA: No significant pulmonary or pleural abnormality. No pneumothorax. ADDITIONAL FINDINGS: No significant additional findings. IMPRESSION: 1. No acute findings. Signer Name: Ashu Peng MD Signed: 05/05/2020 12:33 PM Workstation Name: [id number]
[2020-05-05 12:51] LABS: Basophils # (Auto) 0.1 K/mm3 (0.0-0.1); Basophils % (Auto) 1.1 % (0.0-1.8); Eosinophils # (Auto) 0.1 K/mm3 (0.0-0.4); Eosinophils % (Auto) 2.3 % (0.0-4.3); Hemoglobin 15.7 gm/dl (11.8-15.2); Lymphocytes # (Auto) 2.4 K/mm3 (1.2-5.4); Lymphocytes % (Auto) 39.1 % (13.4-35.0); Mean Corpuscular HGB Conc 35 % (32-34); Mean Corpuscular Volume 94 fl (84-94); Monocytes # (Auto) 0.5 K/mm3 (0.0-0.8); Platelet Count 250 K/mm3 (140-440); Red Blood Count 4.78 M/mm3 (3.65-5.03); Red Cell Distribution Width 14.4 % (13.2-15.2)
[2020-05-05 13:14] LABS: Alanine Aminotransferase 26 units/L (7-56); BUN/Creatinine Ratio 14; Blood Urea Nitrogen 11 mg/dL (9-20); Calcium 9.6 mg/dL (8.4-10.2); Hemolysis Index 6
[2020-05-05] MEDS ORDERED: ALPRAZolam 0.5 MG TAB PO ONE (17:36)
[2020-05-05] MEDS ORDERED: ASPIRIN 325 MG TAB PO ONE (17:36)
[2020-05-05] MEDS ORDERED: SODIUM CHLORIDE 0.9% 1000 ML 1,000 ML IV ONE (17:37)
--- NOTE | 2020-05-05 17:51 | Emergency Department Report ---
ED General Adult HPI - General Chief complaint: Dizziness Stated complaint: DIZZY Source: patient Mode of arrival: Ambulatory Limitations: No Limitations - History of Present Illness Initial comments: Patient is a 39-year-old -[place] male with a history of hypertension, chronic alcohol and tobacco abuse and was noncompliant with his blood pressure medications presents to the ED with complaint of acute onset persistent lightheadedness and dizziness for the last 2 days. Patient states that the symptoms have been intermittent and persistent especially with movement. Patient also complains states that she drank heavy alcohol 2 days ago and thereafter developed intractable nausea and vomiting which has since resolved. Patient states that she came to the ED today for evaluation because of persistent lightheadedness and dizziness and also to get a refill of his blood pressure medications. Patient states that he does not remember the last time he took his blood pressure medications but states that it may be over 2 weeks since he last took the last dose of his blood pressure medications. Patient states that he takes amlodipine 10 mg tablets and lisinopril-HCTZ 20-12.5 mg daily for his chronic hypertension. Patient denies chest pain, shortness of breath, syncope, change in vision, palpitations, traumatic injury, heavy lifting, fever, chills, cough, abdominal pain, diarrhea, dysuria, urinary frequency and urgency or change in vision and seizures. MD Complaint: Lightheadedness, dizziness, nausea and vomiting, Elevated Blood pr essure -: Sudden, days(s) (3) Location: head Radiation: non-radiation Severity scale (0 -10): 1 Quality: dull Consistency: intermittent Improves with: none Worsens with: none Associated Symptoms: denies other symptoms, headaches, loss of appetite, malaise, nausea/vomiting. denies: confusion, chest pain, cough, diaphoresis, fever/chills, rash, seizure, shortness of breath, syncope, weakness Treatments Prior to Arrival: none - Related Data Previous Rx's Medication Instructions Recorded Last Taken Type Acetaminophen/Codeine [Tylenol 1 tab PO Q6H PRN #12 tab 08/07/17 Unknown Rx /Codeine # 3 tab] Ibuprofen [Motrin] 800 mg PO Q8HR PRN #25 tablet 08/07/17 Unknown Rx Cyclobenzaprine [Flexeril] 10 mg PO QHS PRN #10 tablet 03/12/18 Unknown Rx Ibuprofen [Motrin] 600 mg PO Q8H PRN #20 tablet 03/12/18 Unknown Rx Hyoscyamine Subl [Levsin Sl 0.125 0.125 mg SL Q6HR PRN #20 tab 04/11/18 Unknown Rx TAB] Ondansetron [Zofran ODT TAB] 8 mg PO Q8HR #20 tab.rapdis 04/11/18 Unknown Rx Naproxen [Naprosyn] 500 mg PO BID PRN #30 tablet 05/15/18 Unknown Rx cephALEXin [Keflex] 500 mg PO Q12HR #20 cap 05/15/18 Unknown Rx Ondansetron [Zofran Odt] 4 mg PO Q8HR PRN #12 tab.rapdis 07/11/18 Unknown Rx Lisinopril/Hydrochlorothiazide 1 tab PO QDAY #30 tab 08/30/19 Unknown Rx [Zestoretic 20-12.5 mg] Sulfamethoxazole/Trimethoprim 1 each PO BID #14 tablet 08/30/19 Unknown Rx [Bactrim DS TAB] amLODIPine 10 mg PO DAILY #30 tab 08/30/19 Unknown Rx predniSONE [Deltasone] 20 mg PO QDAY #5 tab 08/30/19 Unknown Rx Allergies Allergy/AdvReac Type Severity Reaction Status Date / Time No Known Allergies Allergy Verified 05/05/20 11:36 ED Review of Systems ROS: Stated complaint: DIZZY Other details as noted in HPI Constitutional: malaise, other (elevated blood pressure). denies: chills, fever Eyes: denies: eye pain, eye discharge, vision change ENT: denies: ear pain, throat pain Respiratory: denies: cough, shortness of breath, wheezing Cardiovascular: denies: chest pain, palpitations Endocrine: no symptoms reported Gastrointestinal: nausea, vomiting. denies: abdominal pain, diarrhea Genitourinary: denies: urgency, dysuria Musculoskeletal: denies: back pain, joint swelling, arthralgia Skin: denies: rash, lesions Neurological: vertigo, other (dizziness and lightheadedness). denies: headache, weakness, paresthesias Psychiatric: anxiety. denies: depression, auditory hallucinations, visual hallucinations, suicidal thoughts Hematological/Lymphatic: denies: easy bleeding, easy bruising ED Past Medical Hx - Past Medical History Hx Hypertension: Yes Additional medical history: chronic left knee pain. high cholestrol - Surgical History Past Surgical History?: No - Social History Smoking Status: Current Every Day Smoker Substance Use Type: None, Alcohol - Medications Home Medications: Home Medications Medication Instructions Recorded Confirmed Last Taken Type Acetaminophen/Codeine [Tylenol 1 tab PO Q6H PRN #12 tab 08/07/17 Unknown Rx /Codeine # 3 tab] Ibuprofen [Motrin] 800 mg PO Q8HR PRN #25 tablet 08/07/17 Unknown Rx Cyclobenzaprine [Flexeril] 10 mg PO QHS PRN #10 tablet 03/12/18 Unknown Rx Ibuprofen [Motrin] 600 mg PO Q8H PRN #20 tablet 03/12/18 Unknown Rx Hyoscyamine Subl [Levsin Sl 0.125 0.125 mg SL Q6HR PRN #20 tab 04/11/18 Unknown Rx TAB] Ondansetron [Zofran ODT TAB] 8 mg PO Q8HR #20 tab.rapdis 04/11/18 Unknown Rx Naproxen [Naprosyn] 500 mg PO BID PRN #30 tablet 05/15/18 Unknown Rx cephALEXin [Keflex] 500 mg PO Q12HR #20 cap 05/15/18 Unknown Rx Ondansetron [Zofran Odt] 4 mg PO Q8HR PRN #12 tab.rapdis 07/11/18 Unknown Rx Lisinopril/Hydrochlorothiazide 1 tab PO QDAY #30 tab 08/30/19 Unknown Rx [Zestoretic 20-12.5 mg] Sulfamethoxazole/Trimethoprim 1 each PO BID #14 tablet 08/30/19 Unknown Rx [Bactrim DS TAB] amLODIPine 10 mg PO DAILY #30 tab 08/30/19 Unknown Rx predniSONE [Deltasone] 20 mg PO QDAY #5 tab 08/30/19 Unknown Rx ED Physical Exam - General Limitations: No Limitations General appearance: alert, in no apparent distress - Head Head exam: Present: atraumatic, normocephalic, normal inspection - Eye Eye exam: Present: normal appearance, PERRL, EOMI. Absent: scleral icterus, conjunctival injection, nystagmus, periorbital swelling, periorbital tenderness, other Pupils: Absent: unequal - ENT ENT exam: Present: normal exam, normal orophraynx, mucous membranes dry, TM's normal bilaterally, normal external ear exam - Neck Neck exam: Present: normal inspection, full ROM - Respiratory Respiratory exam: Present: normal lung sounds bilaterally. Absent: respiratory distress, wheezes, rales, rhonchi, accessory muscle use, decreased breath sounds - Cardiovascular Cardiovascular Exam: Present: normal rhythm, tachycardia, normal heart sounds. Absent: systolic murmur, diastolic murmur, rubs, gallop - GI/Abdominal GI/Abdominal exam: Present: soft, normal bowel sounds. Absent: tenderness, guarding, rebound, hyperactive bowel sounds, hypoactive bowel sounds, organomegaly - Extremities Exam Extremities exam: Present: normal inspection, full ROM, normal capillary refill - Back Exam Back exam: Present: normal inspection, full ROM. Absent: tenderness, CVA tenderness (R), CVA tenderness (L), muscle spasm, paraspinal tenderness, vertebral tenderness - Neurological Exam Neurological exam: Present: alert, oriented X3, CN II-XII intact, normal gait, reflexes normal - Psychiatric Psychiatric exam: Present: normal affect, normal mood, anxious - Skin Skin exam: Present: warm, dry, intact, normal color. Absent: rash ED Course Vital Signs 05/05/20 11:40 Temperature 98.1 F Pulse Rate 137 H Respiratory 18 Rate Blood Pressure 170/113 O2 Sat by Pulse 96 Oximetry ED Medical Decision Making - Lab Data Result diagrams: 05/05/20 12:10 05/05/20 12:10 - EKG Data EKG shows normal: sinus rhythm Rate: tachycardia - EKG Data 05/05/20 17:50 EKG shows sinus tachycardia with a ventricular rate of 121 bpm, and LVH. - Radiology Data Radiology results: report reviewed, image reviewed [facility] [address] [place] [address] XRay Report Signed Patient: HUYEN MARTINEZ MR#: [id number] : 1980 Acct:[id number] Age/Sex: 39 / M ADM Date: 05/05/20 Loc: ED Attending Dr: Ordering Physician: TONEY GARRETT Date of Service: 05/05/20 Procedure(s): XR chest routine 2V Accession Number(s): [id number] cc: TONEY GARRETT Fluoro Time In Minutes: CHEST 2 VIEWS INDICATION / CLINICAL INFORMATION: dizziness. COMPARISON: None available. FINDINGS: SUPPORT DEVICES: None. HEART / MEDIASTINUM: No significant abnormality. LUNGS / PLEURA: No significant pulmonary or pleural abnormality. No pneumothorax. ADDITIONAL FINDINGS: No significant additional findings. IMPRESSION: 1. No acute findings. Signer Name: Ashu Peng MD Signed: 05/05/2020 12:33 PM Workstation Name: [id number] Transcribed By: CW Dictated By: CRISTAL PENG MD Electronically Authenticated By: CRISTAL PENG MD Signed Date/Time: 05/05/201232 DD/ 32 TD/TT: Print Cancel - Medical Decision Making This is a 39-year-old -[place] male with a history of hypertension, chr onic alcohol and tobacco abuse and was noncompliant with his blood pressure medications presents to the ED with complaint of acute onset persistent lightheadedness and dizziness for the last 2 days. Patient states that the symptoms have been intermittent and persistent especially with movement. Toney grace also complains states that she drank heavy alcohol 2 days ago and thereafter developed intractable nausea and vomiting which has since resolved. Patient states that she came to the ED today for evaluation because of persistent lightheadedness and dizziness and also to get a refill of his blood pressure medications. Patient states that he does not remember the last time he took his blood pressure medications but states that it may be over 2 weeks since he last took the last dose of his blood pressure medications. Patient states that he takes amlodipine 10 mg tablets and lisinopril-HCTZ 20-12.5 mg daily for his chronic hypertension. In the ED, patient is alert and oriented x3 and is not in any distress but tachycardic, afebrile and anxious in triage. EKG shows sinus tachycardia with a ventricular rate of 121 bpm and LVH changes but no ST elevation or depression, or any T wave abnormalities. Chest x-ray shows no acute cardiopulmonary abnormalities or pneumonitis. Lab test results were reviewed and are all nonactionable. Troponin level was not ran as the patient declined any further tests. Patient refused any IV fluids, medications and stated that he would like to leave the ED without any further treatment. Patient therefore signed out to the ED and opted out of every treatment stating "I have been here too long". Patient signed AGAINST MEDICAL ADVICE and left the ED. At the time the patient left the ED, he was still tachycardic with ventricular rate of 120 bpm but the patient refused any treatment and left AMA. - Differential Diagnosis ACS; dissection; dehydration; PE; Pneumonia; Anxiety; Substance abuse Critical care attestation.: If time is entered above; I have spent that time in minutes in the direct care of this critically ill patient, excluding procedure time. ED Disposition Clinical Impression: Dizziness and giddiness, Intermittent lightheadedness, Uncontrolled stage 2 hypertension Disposition: DC-07 LEFT AGAINST MED ADVICE Is pt being admited?: No Does the pt Need Aspirin: No Condition: Undetermined Instructions: Hypertension (ED), Dizziness, [id number] Referrals: PRIMARY CARE, [Primary Care Provider] - 3-5 Days Forms: AMA Form Time of Disposition: 17:45 Print Language: FRENCH
== END 2020-05-05 17:59 | disposition left against medical advice (07) ==
LOC: ED 11:19
DX: R42 Dizziness and giddiness (principal); I10 Essential (primary) hypertension; F17.200 Nicotine dependence, unspecified, uncomplicated; E78.00 Pure hypercholesterolemia, unspecified; Z79.899 Other long term (current) drug therapy
CPT/HCPCS: 36415; 71046; 80053; 80320; 84443; 85025; 93005; G0480

== ENCOUNTER 2021-07-03 06:26 | Emergency (ER) | payer SELFPAY ==
[2021-07-03] MEDS ORDERED: KETOROLAC 30 MG/1 ML INJ IM ONE (11:15)
--- NOTE | 2021-07-03 11:39 | Emergency Department Report ---
Upper Extremity - HPI Chief Complaint: Extremity Injury, Upper Stated Complaint: SWOLLEN RT WRIST Upper Extremity: Right Wrist, Right Hand Occurred When: 4 Days Severity: mild Symptoms: Yes Pain with Movement, No Deformity, No Limited Range of Movement, No Numbness, No Weakness, No Swelling, No Bruising/Ecchymosis, No Laceration or Abrasion Other History: 40-year-old presents to the ED complaining of right wrist pain x4 days. 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 Patient able to extremity without any difficulty. Patient denies any numbness tingling at present. Patient is alert and oriented x3. No acute distress noted. No ill appearance noted. No distracting injury noted. ED Review of Systems ROS: Stated complaint: SWOLLEN RT WRIST Other details as noted in HPI Constitutional: denies: chills, fever Eyes: denies: eye pain, eye discharge, vision change ENT: denies: ear pain, throat pain Respiratory: denies: cough, shortness of breath, wheezing Cardiovascular: denies: chest pain, palpitations Endocrine: no symptoms reported Gastrointestinal: denies: abdominal pain, nausea, diarrhea Genitourinary: denies: urgency, dysuria Musculoskeletal: joint swelling. denies: back pain, arthralgia Skin: denies: rash, lesions Neurological: denies: headache, weakness, paresthesias Psychiatric: denies: anxiety, depression Hematological/Lymphatic: denies: easy bleeding, easy bruising ED Past Medical Hx - Past Medical History Hx Hypertension: Yes Additional medical history: chronic left knee pain. high cholestrol - Social History Smoking Status: Current Every Day Smoker Substance Use Type: None, Alcohol - Medications Home Medications: Home Medications Medication Instructions Recorded Confirmed Last Taken Type Acetaminophen/Codeine [Tylenol 1 tab PO Q6H PRN #12 tab 08/07/17 Unknown Rx /Codeine # 3 tab] Ibuprofen [Motrin] 800 mg PO Q8HR PRN #25 tablet 08/07/17 Unknown Rx Cyclobenzaprine [Flexeril] 10 mg PO QHS PRN #10 tablet 03/12/18 Unknown Rx Ibuprofen [Motrin] 600 mg PO Q8H PRN #20 tablet 03/12/18 Unknown Rx Hyoscyamine Subl [Levsin Sl 0.125 0.125 mg SL Q6HR PRN #20 tab 04/11/18 Unknown Rx TAB] Ondansetron [Zofran ODT TAB] 8 mg PO Q8HR #20 tab.rapdis 04/11/18 Unknown Rx Naproxen [Naprosyn] 500 mg PO BID PRN #30 tablet 05/15/18 Unknown Rx cephALEXin [Keflex] 500 mg PO Q12HR #20 cap 05/15/18 Unknown Rx Ondansetron [Zofran Odt] 4 mg PO Q8HR PRN #12 tab.rapdis 07/11/18 Unknown Rx Lisinopril/Hydrochlorothiazide 1 tab PO QDAY #30 tab 08/30/19 Unknown Rx [Zestoretic 20-12.5 mg] Sulfamethoxazole/Trimethoprim 1 each PO BID #14 tablet 08/30/19 Unknown Rx [Bactrim DS TAB] predniSONE [Deltasone] 20 mg PO QDAY #5 tab 08/30/19 Unknown Rx Lisinopril/Hydrochlorothiazide 1 tab PO QDAY 30 Days #30 tab 07/03/21 Unknown Rx [Zestoretic 20-25 mg] Naproxen [Naprosyn] 500 mg PO BID 15 Days #30 tablet 07/03/21 Unknown Rx amLODIPine 10 mg PO DAILY 15 Days #30 tab 07/03/21 Unknown Rx amLODIPine 10 mg PO DAILY 30 Days #30 tab 07/03/21 Unknown Rx Upper Extremity Exam - Exam General: Vital signs noted. No distress. Alert and acting appropriately. ED Course Vital Signs 07/03/21 07:04 Temperature 97.8 F Pulse Rate 82 Respiratory 16 Rate Blood Pressure 174/110 O2 Sat by Pulse 99 Oximetry ED Medical Decision Making - Radiology Data [facility] [address] [place] [address] XRay Report Signed Patient: HUYEN MARTINEZ MR#: [id number] : 1980 Acct:[id number] Age/Sex: 40 / M ADM Date: 07/03/21 Loc: ED Attending Dr: Ordering Physician: EAGLE SEGURA Date of Service: 07/03/21 Procedure(s): XR wrist 2V RT Accession Number(s): [id number] cc: EAGLE SEGURA Fluoro Time In Minutes: RIGHT WRIST 2 VIEWS INDICATION: Right wrist pain. COMPARISON: None. IMPRESSION: No acute osseous or soft tissue abnormality. No significant DJD. RIGHT HAND 2 VIEWS INDICATION: Right hand pain. COMPARISON: None. IMPRESSION: No acute osseous or soft tissue abnormality. No significant DJD. Signer Name: Frank Ramires Jr, MD Signed: 07/03/2021 11:58 AM Workstation Name: [id number] Transcribed By: TTR Dictated By: FRANK RAMIRES JR, MD Electronically Authenticated By: FRANK RAMIRES JR, MD Signed Date/Time: 07/03/211157 DD/ 57 TD/TT: [facility] [address] [place] [address] XRay Report Signed Patient: HUYEN MARTINEZ MR#: [id number] : 1980 Acct:[id number] Age/Sex: 40 / M ADM Date: 07/03/21 Loc: ED Attending Dr: Ordering Physician: EAGLE SEGURA Date of Service: 07/03/21 Procedure(s): XR hand 2V RT Accession Number(s): [id number] cc: EAGLE SEGURA Fluoro Time In Minutes: RIGHT WRIST 2 VIEWS INDICATION: Right wrist pain. COMPARISON: None. IMPRESSION: No acute osseous or soft tissue abnormality. No significant DJD. RIGHT HAND 2 VIEWS INDICATION: Right hand pain. COMPARISON: None. IMPRESSION: No acute osseous or soft tissue abnormality. No significant DJD. Signer Name: Frank Ramires Jr, MD Signed: 07/03/2021 11:58 AM Workstation Name: [id number] Transcribed By: TTR Dictated By: FRANK RAMIRES JR, MD Electronically Authenticated By: FRANK RAMIRES JR, MD Signed Date/Time: 07/03/211157 DD/ 57 TD/TT: - Medical Decision Making 40-year-old presents to the ED complaining of right wrist pain x4 days. 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 Patient denies any numbness tingling at present. Patient is alert and oriented x3. No acute distress noted no ill appearance noted . No obvious deformity noted .no distracting injury noted. Patient has mild edema noted. Physical examination patient has mild edema noted. 2 view x-rays show no abnormality of the right hand and right wrist. No distracting injury noted Rechecked the patient is resting quietly quietly and comfortable and feeling better. I discussed the results of diagnostic study, my clinical impression and the plan for further treatment with the patient. Patient agrees with plan and discharge at this present time. All question addressed. I have given the patient instruction regarding a diagnosis ,expectation ,follow- up and return precaution. I explained to the patient that emergent condition may arise and to return to the ED for new worsen and any new persisting condition. I have explained the importance of following up with the primary care physician or referral physician listed below has instructed. The patient verbalized understanding of discharge instruction. Critical care attestation.: If time is entered above; I have spent that time in minutes in the direct care of this critically ill patient, excluding procedure time. ED Disposition Clinical Impression: Right wrist pain Hypertension Qualifiers: Hypertension type: primary hypertension Qualified Code(s): I10 - Essential (primary) hypertension Disposition: 01 HOME / SELF CARE / HOMELESS Is pt being admited?: No Does the pt Need Aspirin: No Condition: Stable Instructions: Preventing Carpal Tunnel Syndrome, How to Use Cold Therapy, Udvl-[id number], Hypertension, Adult, Wnnm-[id number], Musculoskeletal Pain, Hypertension (ED) Additional Instructions: Take medication as prescribed Return ED for any worsening symptom Prescriptions: amLODIPine 10 mg PO DAILY 15 Days #30 tab amLODIPine 10 mg PO DAILY 30 Days #30 tab Naproxen [Naprosyn] 500 mg PO BID 15 Days #30 tablet Lisinopril/Hydrochlorothiazide [Zestoretic 20-25 mg] 1 tab PO QDAY 30 Days #30 tab Referrals: SAVANAH ARREDONDO MD [Primary Care Provider] - 3-5 Days [facility] [Provider Group] - 3-5 Days RONAK PFEIFFER MD [Staff Physician] - 3-5 Days Forms: Work/School Release Form(ED) Time of Disposition: 12:29
--- NOTE | 2021-07-03 12:03 | XRay Report ---
RIGHT WRIST 2 VIEWS INDICATION: Right wrist pain. COMPARISON: None. IMPRESSION: No acute osseous or soft tissue abnormality. No significant DJD. RIGHT HAND 2 VIEWS INDICATION: Right hand pain. COMPARISON: None. IMPRESSION: No acute osseous or soft tissue abnormality. No significant DJD. Signer Name: Frank Ramires Jr, MD Signed: 07/03/2021 11:58 AM Workstation Name: [id number]
[2021-07-03 12:52] VITALS: BP 158/82
== END 2021-07-03 12:49 | disposition home or self-care (01) ==
LOC: ED 06:26
DX: M25.531 Pain in right wrist (principal); I10 Essential (primary) hypertension; F17.200 Nicotine dependence, unspecified, uncomplicated; F10.20 Alcohol dependence, uncomplicated
CPT/HCPCS: 73100; 73120; 96372; 99283; J1885

== ENCOUNTER 2021-08-12 16:20 | Emergency (ER) | payer SELFPAY ==
--- NOTE | 2021-08-12 16:46 | Emergency Department Report ---
Chief Complaint: Headache Stated Complaint: HEADACHE/BODY ACHES - HPI History of Present Illness: 40-year-old male past medical history hypertension reports to the ER with complaints of headache for about 3 days and just feeling tired with body aches. Patient reports that he, his blood pressure is elevated, has been on his blood pressure medication for about a week now. Patient is on lisinopril 20 hydrochlorothiazide 12.5 and amlodipine 10. Patient reports no chest pain no shortness of breath no dizziness. - Exam Vital Signs: Vital Signs 08/12/21 08/12/21 16:37 16:38 Temperature 100.1 F H 100.1 F H Pulse Rate 100 H 108 H Respiratory 18 18 Rate Blood Pressure 163/103 Blood Pressure 160/103 [Right] O2 Sat by Pulse 100 100 Oximetry Physical Exam: Patient in no acute distress Patient alert and oriented x4. Patient gait is steady. Nonlabored breathing MSE screening note: Focused history and physical exam performed. Due to findings the following was ordered: Orders have been placed Patient will be further evaluated once he gets to a room in the back. Patient will be seen by another provider. Medical screening note has been completed. ED Disposition for MSE Condition: Stable
[2021-08-12 17:32] LABS: Basophils # (Auto) 0.1 K/mm3 (0.0-0.1); Basophils % (Auto) 2.3 % (0.0-1.8); Eosinophils % (Auto) 0.2 % (0.0-4.3); Hematocrit 41.2 % (35.5-45.6); Hemoglobin 13.8 gm/dl (11.8-15.2); Lymphocytes # (Auto) 1.4 K/mm3 (1.2-5.4); Lymphocytes % (Auto) 26.6 % (13.4-35.0); Mean Corpuscular HGB Conc 34 % (32-34); Mean Corpuscular Volume 94 fl (84-94); Monocytes # (Auto) 0.9 K/mm3 (0.0-0.8); Monocytes % (Auto) 16.6 % (0.0-7.3); Platelet Count 151 K/mm3 (140-440); Red Blood Count 4.37 M/mm3 (3.65-5.03)
[2021-08-12 17:34] LABS: Alanine Aminotransferase 19 units/L (7-56); Albumin 4.5 g/dL (3.9-5); BUN/Creatinine Ratio 16; Blood Urea Nitrogen 16 mg/dL (9-20); Calcium 9.7 mg/dL (8.4-10.2); Hemolysis Index 2
[2021-08-12 22:43] LABS: Eosinophils % (Manual) 0 % (0.0-4.3); Platelet Estimate Consistent w Auto; RBC Morphology Normal; Total Cells Counted 100
[2021-08-13 08:33] VITALS: BP 147/100
--- NOTE | 2021-08-13 10:34 | Electrocardiograph Report ---
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
--- NOTE | 2021-08-13 11:23 | Emergency Department Report ---
ED General Adult HPI - General Chief complaint: Headache Stated complaint: HEADACHE/BODY ACHES Source: patient Mode of arrival: Ambulatory Limitations: No Limitations - History of Present Illness Initial comments: Patient 40-year-old male presenting to ED with complaint of headache and body aches for the past 3 days. Low-grade fever in triage. Severity scale (0 -10): 8 - Related Data Previous Rx's Medication Instructions Recorded Last Taken Type Acetaminophen/Codeine [Tylenol 1 tab PO Q6H PRN #12 tab 08/07/17 Unknown Rx /Codeine # 3 tab] Ibuprofen [Motrin] 800 mg PO Q8HR PRN #25 tablet 08/07/17 Unknown Rx Cyclobenzaprine [Flexeril] 10 mg PO QHS PRN #10 tablet 03/12/18 Unknown Rx Ibuprofen [Motrin] 600 mg PO Q8H PRN #20 tablet 03/12/18 Unknown Rx Hyoscyamine Subl [Levsin Sl 0.125 0.125 mg SL Q6HR PRN #20 tab 04/11/18 Unknown Rx TAB] Ondansetron [Zofran ODT TAB] 8 mg PO Q8HR #20 tab.rapdis 04/11/18 Unknown Rx Naproxen [Naprosyn] 500 mg PO BID PRN #30 tablet 05/15/18 Unknown Rx cephALEXin [Keflex] 500 mg PO Q12HR #20 cap 05/15/18 Unknown Rx Ondansetron [Zofran Odt] 4 mg PO Q8HR PRN #12 tab.rapdis 07/11/18 Unknown Rx Lisinopril/Hydrochlorothiazide 1 tab PO QDAY #30 tab 08/30/19 Unknown Rx [Zestoretic 20-12.5 mg] Sulfamethoxazole/Trimethoprim 1 each PO BID #14 tablet 08/30/19 Unknown Rx [Bactrim DS TAB] predniSONE [Deltasone] 20 mg PO QDAY #5 tab 08/30/19 Unknown Rx Lisinopril/Hydrochlorothiazide 1 tab PO QDAY 30 Days #30 tab 07/03/21 Unknown Rx [Zestoretic 20-25 mg] Naproxen [Naprosyn] 500 mg PO BID 15 Days #30 tablet 07/03/21 Unknown Rx amLODIPine 10 mg PO DAILY 15 Days #30 tab 07/03/21 Unknown Rx amLODIPine 10 mg PO DAILY 30 Days #30 tab 07/03/21 Unknown Rx Allergies Allergy/AdvReac Type Severity Reaction Status Date / Time No Known Allergies Allergy Verified 05/05/20 11:36 ED Review of Systems ROS: Stated complaint: HEADACHE/BODY ACHES Other details as noted in HPI Constitutional: denies: chills, fever Respiratory: denies: cough, shortness of breath, wheezing Cardiovascular: denies: chest pain, palpitations Gastrointestinal: denies: abdominal pain, nausea, diarrhea Genitourinary: denies: urgency, dysuria Musculoskeletal: myalgia Skin: denies: rash, lesions Neurological: headache Psychiatric: denies: anxiety, depression ED Past Medical Hx - Past Medical History Previous Medical History?: Yes Hx Hypertension: Yes Additional medical history: chronic left knee pain. high cholestrol - Social History Smoking Status: Current Every Day Smoker Substance Use Type: None - Medications Home Medications: Home Medications Medication Instructions Recorded Confirmed Last Taken Type Acetaminophen/Codeine [Tylenol 1 tab PO Q6H PRN #12 tab 08/07/17 Unknown Rx /Codeine # 3 tab] Ibuprofen [Motrin] 800 mg PO Q8HR PRN #25 tablet 08/07/17 Unknown Rx Cyclobenzaprine [Flexeril] 10 mg PO QHS PRN #10 tablet 03/12/18 Unknown Rx Ibuprofen [Motrin] 600 mg PO Q8H PRN #20 tablet 03/12/18 Unknown Rx Hyoscyamine Subl [Levsin Sl 0.125 0.125 mg SL Q6HR PRN #20 tab 04/11/18 Unknown Rx TAB] Ondansetron [Zofran ODT TAB] 8 mg PO Q8HR #20 tab.rapdis 04/11/18 Unknown Rx Naproxen [Naprosyn] 500 mg PO BID PRN #30 tablet 05/15/18 Unknown Rx cephALEXin [Keflex] 500 mg PO Q12HR #20 cap 05/15/18 Unknown Rx Ondansetron [Zofran Odt] 4 mg PO Q8HR PRN #12 tab.rapdis 07/11/18 Unknown Rx Lisinopril/Hydrochlorothiazide 1 tab PO QDAY #30 tab 08/30/19 Unknown Rx [Zestoretic 20-12.5 mg] Sulfamethoxazole/Trimethoprim 1 each PO BID #14 tablet 08/30/19 Unknown Rx [Bactrim DS TAB] predniSONE [Deltasone] 20 mg PO QDAY #5 tab 08/30/19 Unknown Rx Lisinopril/Hydrochlorothiazide 1 tab PO QDAY 30 Days #30 tab 07/03/21 Unknown Rx [Zestoretic 20-25 mg] Naproxen [Naprosyn] 500 mg PO BID 15 Days #30 tablet 07/03/21 Unknown Rx amLODIPine 10 mg PO DAILY 15 Days #30 tab 07/03/21 Unknown Rx amLODIPine 10 mg PO DAILY 30 Days #30 tab 07/03/21 Unknown Rx ED Physical Exam - General Limitations: No Limitations General appearance: alert, in no apparent distress - Head Head exam: Present: atraumatic, normocephalic - Respiratory Respiratory exam: Present: normal lung sounds bilaterally. Absent: respiratory distress - Cardiovascular Cardiovascular Exam: Present: regular rate, normal rhythm, normal heart sounds. Absent: systolic murmur, diastolic murmur, rubs, gallop - GI/Abdominal GI/Abdominal exam: Present: soft, normal bowel sounds. Absent: tenderness - Neurological Exam Neurological exam: Present: alert, oriented X3 - Psychiatric Psychiatric exam: Present: normal affect, normal mood - Skin Skin exam: Present: warm, dry, intact, normal color ED Course Vital Signs 08/12/21 08/12/21 08/13/21 16:37 16:38 08:32 Temperature 100.1 F H 100.1 F H 99.2 F Pulse Rate 100 H 108 H 100 H Respiratory 18 18 18 Rate Blood Pressure 163/103 Blood Pressure 160/103 147/100 [Right] O2 Sat by Pulse 100 100 97 Oximetry 08/13/21 08:33 Temperature Pulse Rate Respiratory 18 Rate Blood Pressure Blood Pressure [Right] O2 Sat by Pulse 100 Oximetry ED Medical Decision Making - Lab Data Result diagrams: 08/12/21 16:54 08/12/21 16:54 - Medical Decision Making CBC and CMP grossly unremarkable. Likely viral syndrome. Vital signs are stable. Patient stable for discharge home with return precautions. Critical care attestation.: If time is entered above; I have spent that time in minutes in the direct care of this critically ill patient, excluding procedure time. ED Disposition Clinical Impression: Headache, Generalized body aches Disposition: 07 LEFT WITHOUT BEING SEEN Is pt being admited?: No Does the pt Need Aspirin: No Condition: Stable Instructions: Viral Illness, Adult Referrals: PRIMARY CARE, [Primary Care Provider] - 3-5 Days Time of Disposition: 11:23
== END 2021-08-13 15:20 | disposition left against medical advice (07) ==
LOC: ED 16:20
DX: R51.9 Headache, unspecified (principal); M79.10 Myalgia, unspecified site; F17.200 Nicotine dependence, unspecified, uncomplicated; I10 Essential (primary) hypertension
CPT/HCPCS: 36415; 80053; 85007; 85025; 93005; 99283

== ENCOUNTER 2021-08-15 14:45 | Emergency (ER) | payer SELFPAY ==
[2021-08-15 14:52] VITALS: BP 132/90
== END 2021-08-15 20:08 | disposition left against medical advice (07) ==
LOC: ED 14:45
DX: Z02.79 Encounter for issue of other medical certificate (principal); Z53.21 Procedure and treatment not carried out due to patient leaving prior to being seen by health care provider